=== PATIENT | female | born 1940 | race Caucasian/White ===

== ENCOUNTER 2023-11-08 18:27 | Emergency (ER) | payer MEDICARE, SELFPAY ==
[2023-11-08 18:32] VITALS: BP 102/76
[2023-11-08 18:34] VITALS: BP 102/76
[2023-11-08 18:41] VITALS: BMI 28.4
[2023-11-08 19:01] VITALS: BP 111/61
[2023-11-08 19:01] LABS: % Basophils 0.5 % (0-2); % Eosinophils 0.9 % (0-6); % Immature Granulocytes 0.4 % (0-0.5); % Lymphocytes 35.5 % (20.5-51.1); % Monocytes 8.3 % (1.7-9.3); % Neutrophils 54.4 % (42.2-75.2); Absolute Eosinophils 0.1 10^3/uL (0-0.7); Absolute Lymphocytes 2.7 10^3/uL (1.2-3.4); Absolute Monocytes 0.6 10^3/uL (0.1-0.6); Absolute Neutrophils 4.1 10^3/uL (1.4-6.5); Hematocrit 37.6 % (37.0-47.0); Hemoglobin 12.9 g/dL (12.0-16.0); Mean Corp Hgb Conc. 34.3 g/dL (33.0-37.0); Mean Corpuscular Hgb 31.2 pg (27.0-31.0); Mean Platelet Volume 10.6 fL (7.4-10.4); Nucleated Red Blood Cells % 0 %; Platelet Count 190 10^3/uL (130-400); Red Blood Cell Count 4.13 10^6/uL (4.20-5.40); Red Cell Dist. Width 12.7 % (11.5-14.5); White Blood Cell Count 7.6 10^3/uL (4.8-10.8)
[2023-11-08 19:34] LABS: ALT (SGPT) 17 U/L (0-35); AST (SGOT) 25 U/L (14-36); Albumin 3.8 g/dl (3.5-5.0); Alkaline Phosphatase 45 U/L (38-126); Blood Urea Nitrogen 21 mg/dl (7-17); Carbon Dioxide 21 mmol/L (22-30); Chloride 104 mmol/L (98-107); Estimated Creatinine Clearance 52 ml/min; Glucose 86 mg/dl (70-99); Sodium 136 mmol/L (135-145); Total Bilirubin 0.9 mg/dl (0.2-1.3); Total Protein 6.1 g/dl (6.3-8.2); eGFR > 60.00
--- NOTE | 2023-11-08 19:52 | ED.GENMED ---
History of Present Illness
General
Chief Complaint: Fall
Source: patient
Exam Limitations: none
Time Seen by Provider: 11/08/23 19:24
Nursing documentation reviewed up to this point in time: agreed with
Travel History
Have you had any contact with someone who has COVID-19?: No
Do you have any symptoms of coronavirus? Fever > 100 degrees, chills, cough, shortness of breath, sore throat, loss of taste or smell, muscle aches, or headache?: No
History of Present Illness
History of Present Illness:
83-year-old female presents to the ER from [facility]. Patient reports she was using her walker outside and got stuck and she fell landing on her right side. She does not believe she hit her head she hit her right side however
complains of right shoulder pain and right leg/hip soreness. She is on Eliquis for history A-fib. She denies any headache nausea vomiting neck pain.
Past History
Past History
ED Past Medical History: Arrthythmia (Atrial fib), Cancer (Breast CA with Left lumpectomy), CHF, HTN, Psychiatric (Anxiety Depression) and Other (L1 fracture; T12 compression fracture August 2022, minimal compression fracture of T11 February 2023,
left proximal humerus fracture February 2023)
ED Past Surgical History: Cholecystectomy, Orthopedic (right hip fracture, Partial replacement) and Other (colonoscopy)
Social History
Tobacco: Former smoker
Alcohol: Occasional
Drug: None
Personal:
Living: alone (Currently residing at [facility] for rehabilitation)
Employment: Retired
Family History
Family History: Other (Noncontributory)
Review of Systems
Review of Systems
Allergies reviewed?: Yes
All Other Systems: ROS reviewed and negative except as documented in HPI and ROS
Constitutional: Reports no symptoms
Cardiac: Reports no symptoms
ABD/GI: Reports no symptoms; Denies nausea or vomiting
Musculoskeletal: Reports other (right shoulder pain sore to right hip and right thigh )
Skin: Reports no symptoms
Neurological: Reports no symptoms
Hematologic/Lymphatic: Reports no symptoms
Psychiatric: Reports no symptoms
Phy Exam
General Physical Exam
General Presentation: no apparent distress
General age: appears stated age
General Skin: warm and dry
General Habitus: elderly
General Mental: alert
Neurological Exam
Neurological Exam: alert and oriented x3
Musculoskeletal Exam
Musculoskeletal Exam: other (No obvious head injury to person with spine tenderness normal inspection to her shoulder but tender throughout pain with lifting right leg off the stretcher mild soft tissue tenderness to thigh region no obvious bruising
or abrasions )
Skin Exam
Skin Exam: normal color and warm/dry
Psychiatric Exam
Psychiatric Exam: normal mood/affect
Course
Orders/Labs/Results
Orders:
Orders
11/08/23 18:39
EKG [Electrocardiogram (*1)] Urgent
Reason for Study: Syncope
11/08/23 18:40
EKG- Treatment ONCE
11/08/23 18:47
Complete Blood Count/With Diff Urgent
11/08/23 19:07
Comprehensive Metabolic Panel Urgent
11/08/23 19:53
CT Head W/o Iv Contrast Urgent
Comment:
Reason For Exam: trauma
11/08/23 19:56
Femur, Right 2 View [CR Femur - Right Min 2 Vw] Urgent
Comment:
Reason For Exam: cardiology
Hip, Right 2-3 Views [CR Hip - RT w/wo Pel 2-3 Vw*] Urgent
Comment:
Reason For Exam: trauma
Include a pelvis x-ray?: Yes
Shoulder, Right, Trauma [CR Shoulder, Trauma - Right] Urgent
Comment:
Reason For Exam: trauma
Abnormal Lab Results
11/08/23 11/08/23
18:47 19:07
RBC 4.13 L 10^6/uL
(4.20-5.40)
MCH 31.2 H pg
(27.0-31.0)
MPV 10.6 H fL
(7.4-10.4)
Carbon Dioxide 21 L mmol/L
(22-30)
BUN 21 H mg/dl
(7-17)
Total Protein 6.1 L g/dl
(6.3-8.2)
11/08/23 18:47
11/08/23 19:07
Vital Signs
Initial and Last Documented VS:
Initial Vital Signs
Temp Pulse BP Pulse Ox
98.1 F 84 102/76 94
11/08/23 18:32 11/08/23 18:32 11/08/23 18:32 11/08/23 18:32
Last Documented Vital Signs
Temp Pulse Resp BP Pulse Ox
98.1 F 82 21 111/93 91
11/08/23 18:32 11/08/23 21:30 11/08/23 21:30 11/08/23 21:00 11/08/23 21:30
MDM/Problems Addressed
Differential Diagnosis Includes:
Not limited to fracture extremity,possible head injury
MDM/Problems Addressed:
Patient is an 83-year-old female from [facility] independent living describes mechanical fall walker slipped on slide landing on her right side she is on Eliquis she did not believe she hit her head however with her being on Eliquis and landing on
her right side complaining of shoulder pain head CT was done and negative patient complained of soreness to the right shoulder and hip region. negative x-rays. she is in no acute distress here. labs were checked prior to my exam and unremarkable .
*Radiology
Radiology exam reviewed: radiology read reviewed
*Pulse Oximetry
Patient hypoxic: no
*Critical Care Note
Total Time (30-74mins, 75-104mins- exclusive of procedures): Not Applicable
ED Attending Note
-
Portions of this chart may have been created with voice recognition software.� Occasional wrong word or��sound alike� substitutions may have occurred due to the inherent limitations of voice recognition software.
Discharge Plan
Departure
Patient Disposition: Home (Routine Discharge)
Date of Disposition: 11/08/23
Time of Disposition: 23:08
Patient with high blood pressure during this ER visit?: No
Condition: Fair
Covid-19: Not Applicable
Discharge Problem:
Fall, Contusion
Instructions: Contusion (DC)
Prescriptions:
No Action
calcium carbonate 600 MG tablet
600 mg PO BIDWMEAL
potassium chloride [Klor-Con M20] 20 MEQ tablet,ER particles/crystals
20 meq PO DAILY
rosuvastatin 5 MG tablet
5 mg PO QPM Qty: 90 3RF
nitroglycerin 0.4 MG tablet, sublingual
0.4 mg sublingual [id number] PRN (Reason: chest pain) Qty: 25 2RF
fluoxetine 40 mg capsule
40 mg PO QPM
alendronate 70 mg tablet
70 mg PO WEEKLY
bupropion HCl 150 mg tablet extended release 24 hr
150 mg PO DAILY
furosemide 20 MG tablet
20 mg PO DAILY
Eliquis 5 MG tablet
5 mg PO BID
Hold Instructions: Resume on 03/01/23.
Rx Instructions:
OK to resume tonight 10/07 at usual time
lidocaine [Aspercreme (lidocaine)] 4 % Adhesive Patch,Medicated
1 patch topical DAILY@2000 Qty: 10 0RF
acetaminophen 325 mg Tablet
650 mg PO Q4HPRN PRN (Reason: mild pain/FOREMAN/temp> 100.4F) Qty: 30 0RF
propranolol 40 mg Tablet
40 mg PO BID
fluoxetine 20 mg Capsule
20 mg PO DAILY Qty: 30 0RF
oxycodone 10 mg tablet
15 mg PO Q6HPRN PRN (Reason: mod sev pain)
Rx Instructions:
use 5mg if moderate pain
tramadol 50 mg tablet
50 mg PO Q6H PRN (Reason: Pain) Qty: 30 0RF
cefuroxime axetil 250 mg tablet
250 mg PO BID Qty: 14 0RF
Referrals:
Nikko Kirk MD [Family Provider] -
Activity Restrictions/Additional Instructions:
You may take Tylenol as needed for discomfort. X-rays were negative for any fracture .CAT scan was negative. Follow-up with your family doctor the next 4 days return if any worsening of symptoms
Interventions
Interventions:
*Risk Screen - Suicide Last Done: 11/08/23 18:41
*General Assessment Last Done: 11/08/23 18:41
*Neglect/Abuse Screening Last Done: 11/08/23 18:41
ED- Fall Risk Assessment Last Done: 11/08/23 19:20
*ED COVID-19 Vaccine History Last Done: 11/08/23 18:41
ED-Musculoskeletal Assessment Last Done: 11/08/23 18:41
ED- Neurological Assessment Last Done: 11/08/23 18:41
ED-Skin Assessment Last Done: 11/08/23 18:41
Discharge Date and Time
Print Language: ALBANIAN
[2023-11-08 20:00] VITALS: BP 112/84
[2023-11-08 21:00] VITALS: BP 111/93
[2023-11-08 23:00] VITALS: BP 93/67
[2023-11-09] VITALS: BP 109/74
== END 2023-11-09 03:32 | disposition home or self-care (01) ==
LOC: EMR 18:27
PROVIDERS: Emergency Medicine; EMERGENCY PHYSICIAN Emergency Medicine; FAMILY PHYSICIAN Internal Medicine Geriatric Medicine
DX: S40.011A Contusion of right shoulder, initial encounter (principal); M79.652 Pain in left thigh; W19.XXXA Unspecified fall, initial encounter
CPT/HCPCS: 99284; 70450; 73030; 73502; 73552; 80053; 85025; 93005

== ENCOUNTER → 2023-12-06 10:24 | Outpatient (REF) | payer MEDICARE, SELFPAY ==
[2023-12-06 11:03] LABS: % Basophils 0.8 % (0-2); % Eosinophils 1.7 % (0-6); % Immature Granulocytes 0.3 % (0-0.5); % Lymphocytes 41.4 % (20.5-51.1); % Monocytes 9.6 % (1.7-9.3); % Neutrophils 46.2 % (42.2-75.2); Absolute Basophils 0.1 10^3/uL (0-0.2); Absolute Eosinophils 0.1 10^3/uL (0-0.7); Absolute Lymphocytes 3.1 10^3/uL (1.2-3.4); Absolute Monocytes 0.7 10^3/uL (0.1-0.6); Absolute Neutrophils 3.5 10^3/uL (1.4-6.5); Hematocrit 41.1 % (37.0-47.0); Hemoglobin 13.5 g/dL (12.0-16.0); Mean Corp Hgb Conc. 32.8 g/dL (33.0-37.0); Mean Corpuscular Hgb 30.5 pg (27.0-31.0); Mean Platelet Volume 10.5 fL (7.4-10.4); Nucleated Red Blood Cells % 0 %; Platelet Count 223 10^3/uL (130-400); Red Blood Cell Count 4.42 10^6/uL (4.20-5.40); White Blood Cell Count 7.5 10^3/uL (4.8-10.8)
[2023-12-06 11:17] LABS: Urine Albumin Trace (Neg - Trace); Urine Bilirubin 1+ (Negative); Urine Character Slightly Cloudy (Clear); Urine Color Yellow; Urine Glucose Negative (Negative); Urine Ketone Negative (Negative); Urine Leukocyte 2+ (Negative); Urine Nitrite Negative (Negative); Urine Occult Blood Negative (Negative); Urine Urobilinogen Negative (Neg - 1+)
[2023-12-06 11:50] LABS: Glycohemoglobin (HgbA1c) 5.8 % (4.0-5.6)
[2023-12-06 11:51] LABS: ALT (SGPT) 20 U/L (0-35); AST (SGOT) 24 U/L (14-36); Alkaline Phosphatase 61 U/L (38-126); Blood Urea Nitrogen 21 mg/dl (7-17); Carbon Dioxide 29 mmol/L (22-30); Chloride 104 mmol/L (98-107); Glucose 100 mg/dl (70-99); HDL Cholesterol 54 mg/dl; LDL Cholesterol, Calculated 51 mg/dl; Potassium 4.3 mmol/L (3.5-5.1); Sodium 142 mmol/L (135-145); Total Cholesterol 124 mg/dl (50-199); Total Protein 6.6 g/dl (6.3-8.2); Triglyceride 98 mg/dl (10-149); Very Low Density Lipoprotein 19 mg/dl (0-30); eGFR 56.25
[2023-12-06 12:06] LABS: Urine Amorphous Seen; Urine Mucus Few; Urine Squamous Cell 26-30 /LPF (Few)
[2023-12-06 12:07] LABS: Urine Red Blood Cell 0-2 /HPF (0-2)
[2023-12-06 12:08] LABS: Urine Bacteria Many (Negative); Urine White Cell 21-25 /HPF (0-5)
[2023-12-06 12:20] LABS: TSH Reflex To Free T4 0.55 uIU/ml (0.47-4.68)
== END ==
LOC: REG 10:24
PROVIDERS: ATTENDING PHYSICIAN Nurse Practitioner Family
DX: I48.21 Permanent atrial fibrillation (principal); I50.32 Chronic diastolic (congestive) heart failure; E78.2 Mixed hyperlipidemia; S42.292D Other displaced fracture of upper end of left humerus, subsequent encounter for fracture with routine healing; K21.9 Gastro-esophageal reflux disease without esophagitis; F33.1 Major depressive disorder, recurrent, moderate; R53.1 Weakness; R26.81 Unsteadiness on feet; Z13.89 Encounter for screening for other disorder; Z12.39 Encounter for other screening for malignant neoplasm of breast; I36.1 Nonrheumatic tricuspid (valve) insufficiency; I34.0 Nonrheumatic mitral (valve) insufficiency; G25.0 Essential tremor; R73.03 Prediabetes
CPT/HCPCS: 36415; 80053; 80061; 81003; 81015; 83036; 84443; 85025; 87077; 87086; 87186

== ENCOUNTER 2024-01-03 18:10 | Emergency (ER) | payer MEDICARE, SELFPAY ==
[2024-01-03] VITALS (11 sets, daily range): BP systolic 74–120; BP diastolic 38–81; BMI 29.7
[2024-01-03] MEDS: NSS 500 IV (18:22)
[2024-01-03 18:28] LABS: Hematocrit 29.3 % (37.0-47.0); Hemoglobin 10.2 g/dL (12.0-16.0); Mean Corp Hgb Conc. 34.8 g/dL (33.0-37.0); Mean Corpuscular Hgb 31.7 pg (27.0-31.0); Mean Platelet Volume 10.3 fL (7.4-10.4); Platelet Count 178 10^3/uL (130-400); Red Blood Cell Count 3.22 10^6/uL (4.20-5.40); White Blood Cell Count 7.7 10^3/uL (4.8-10.8)
[2024-01-03 18:42] LABS: ALT (SGPT) 12 U/L (0-35); AST (SGOT) 18 U/L (14-36); Albumin 3.4 g/dl (3.5-5.0); Alkaline Phosphatase 50 U/L (38-126); Blood Urea Nitrogen 18 mg/dl (7-17); Calcium 8.7 mg/dl (8.4-10.2); Carbon Dioxide 24 mmol/L (22-30); Chloride 106 mmol/L (98-107); Estimated Creatinine Clearance 45 ml/min; Glucose 90 mg/dl (70-99); Magnesium 1.7 mg/dl (1.6-2.3); Potassium 3.7 mmol/L (3.5-5.1); Sodium 138 mmol/L (135-145); Total Bilirubin 0.7 mg/dl (0.2-1.3); Total Protein 5.4 g/dl (6.3-8.2); eGFR > 60.00
[2024-01-03 18:52] LABS: Troponin I < 0.012 ng/ml
--- NOTE | 2024-01-03 18:57 | ED.GENMED ---
History of Present Illness
General
Chief Complaint: Fall
Source: patient
Exam Limitations: none
Time Seen by Provider: 01/03/24 18:20
Nursing documentation reviewed up to this point in time: agreed with
History of Present Illness
History of Present Illness:
Patient presents to ED for evaluation after witnessed fall at [facility], shortly prior to arrival. Patient who utilizes walker at baseline, who unfortunate has had multiple falls recently, states that she lost balance and fell backwards, hitting
the back of her head on the floor. Denies loss of consciousness. Denies neck pain. Denies dizziness. Denies nausea. Denies loss of sensation or weakness. Denies blurred vision. Per paramedics, however, when initially evaluated at scene,
patient was found to be hypotensive with initial blood pressure in 70s. Patient was started on IV fluids in route to the hospital.
Past History
Past History
ED Past Medical History: Arrthythmia (Atrial fib), Cancer (Breast CA with Left lumpectomy), CHF, HTN, Psychiatric (Anxiety Depression) and Other (L1 fracture; T12 compression fracture August 2022, minimal compression fracture of T11 February 2023,
left proximal humerus fracture February 2023)
ED Past Surgical History: Cholecystectomy, Orthopedic (right hip fracture, Partial replacement) and Other (colonoscopy)
Social History
Tobacco: Former smoker
Alcohol: Occasional
Drug: None
Personal:
Living: alone (Currently residing at [facility] for rehabilitation)
Employment: Retired
Family History
Family History: Other (Noncontributory)
Review of Systems
Review of Systems
Allergies reviewed?: Yes
All Other Systems: ROS reviewed and negative except as documented in HPI and ROS
Constitutional: Reports no symptoms
EENT: Reports no symptoms
Respiratory: Reports no symptoms
Cardiac: Reports no symptoms
ABD/GI: Reports no symptoms
Musculoskeletal: Reports no symptoms
Skin: Reports other (thigh bruise)
Neurological: Reports no symptoms
Phy Exam
Physical Exam
Physical Exam:
Physical Exam
General: no apparent distress, not acutely ill. afebrile
Head: nc/at. eomi
Neck: supple. no meningeal signs.
Heart: irregularly irregular, no murmur. equal radial pulses.
Lungs: no acute respiratory distress. clear bilaterally
Abdomen: normal bowel sounds. not tender.
Neuro: alert and oriented. no focal neurological deficits
Skin: ecchymosis noted over right anterior thigh.
Psychiatric: well kept. interactive and cooperative
Extremities: no edema. no calf tenderness.
Course
Orders/Labs/Results
Orders:
Orders
01/03/24 18:11
CT Head W/o Iv Contrast Urgent
Comment:
Reason For Exam: FALL ON THINNERS
01/03/24 18:19
CT Cervical Spine W/o Iv Contr Urgent
Comment:
Reason For Exam: FALL
01/03/24 18:20
Electrocardiogram (*1) Urgent
Reason for Study: Other
Other Reason for Exam: hypotension
EKG- Treatment ONCE
01/03/24 18:21
0.9% Sodium Chloride 500 ml [Nss] 500 ml IV BOLUS
01/03/24 18:23
Complete Blood Count/No Diff Urgent
Comprehensive Metabolic Panel Urgent
Magnesium Urgent
TSH Urgent
Troponin I Urgent
Abnormal Lab Results
01/03/24
18:23
RBC 3.22 L 10^6/uL
(4.20-5.40)
Hgb 10.2 L g/dL
(12.0-16.0)
Hct 29.3 L %
(37.0-47.0)
MCH 31.7 H pg
(27.0-31.0)
BUN 18 H mg/dl
(7-17)
Total Protein 5.4 L g/dl
(6.3-8.2)
Albumin 3.4 L g/dl
(3.5-5.0)
01/03/24 18:23
01/03/24 18:23
Vital Signs
Initial and Last Documented VS:
Initial Vital Signs
Temp Pulse Resp BP Pulse Ox
98.3 F 69 14 81/38 95
01/03/24 18:12 01/03/24 18:12 01/03/24 18:12 01/03/24 18:12 01/03/24 18:12
Last Documented Vital Signs
Temp Pulse Resp BP Pulse Ox
98.0 F 76 20 113/70 98
01/03/24 20:39 01/03/24 20:39 01/03/24 20:39 01/03/24 20:39 01/03/24 21:33
MDM/Problems Addressed
MDM/Problems Addressed:
CT head/C-spine : no acute findings. Pt remains afebrile, neurologically intact, without any complaints during observation.
BP improved with IVF.
Pt will be transferred back to [place] for continual evaluation and treatment.
*EKG
Interpreted by ED Provider?: Yes
EKG Intrepretation Date: 01/03/24
Heart Rate: 80
Rate: normal
Rhythm: a-fib
[place]: normal axis
Ischemia: non-specific ST changes
*Critical Care Note
Total Time (30-74mins, 75-104mins- exclusive of procedures): Not Applicable
ED Attending Note
-
Portions of this chart may have been created with voice recognition software.� Occasional wrong word or��sound alike� substitutions may have occurred due to the inherent limitations of voice recognition software.
Discharge Plan
Departure
Patient Disposition: Detention/SNF
Date of Disposition: 01/03/24
Time of Disposition: 19:59
Discharge Problem:
Head injury, Contusion of leg, right, Hypotension
Instructions: Head Injury in Adults (DC), Contusion (DC)
Prescriptions:
No Action
calcium carbonate 600 MG tablet
600 mg PO BIDWMEAL
potassium chloride [Klor-Con M20] 20 MEQ tablet,ER particles/crystals
20 meq PO DAILY
rosuvastatin 5 MG tablet
5 mg PO QPM Qty: 90 3RF
nitroglycerin 0.4 MG tablet, sublingual
0.4 mg sublingual [id number] PRN (Reason: chest pain) Qty: 25 2RF
fluoxetine 40 mg capsule
40 mg PO QPM
alendronate 70 mg tablet
70 mg PO WEEKLY
bupropion HCl 150 mg tablet extended release 24 hr
150 mg PO DAILY
furosemide 20 MG tablet
20 mg PO DAILY
Eliquis 5 MG tablet
5 mg PO BID
Hold Instructions: Resume on 03/01/23.
Rx Instructions:
OK to resume tonight / at usual time
lidocaine [Aspercreme (lidocaine)] 4 % Adhesive Patch,Medicated
1 patch topical DAILY@2000 Qty: 10 0RF
acetaminophen 325 mg Tablet
650 mg PO Q4HPRN PRN (Reason: mild pain/FOREMAN/temp> 100.4F) Qty: 30 0RF
propranolol 40 mg Tablet
40 mg PO BID
fluoxetine 20 mg Capsule
20 mg PO DAILY Qty: 30 0RF
oxycodone 10 mg tablet
15 mg PO Q6HPRN PRN (Reason: mod sev pain)
Rx Instructions:
use 5mg if moderate pain
tramadol 50 mg tablet
50 mg PO Q6H PRN (Reason: Pain) Qty: 30 0RF
cefuroxime axetil 250 mg tablet
250 mg PO BID Qty: 14 0RF
Referrals:
UNKNOWN - PT DOES,NOT KNOW [Family Provider] -
Activity Restrictions/Additional Instructions:
As discussed, you are being transferred back to [facility] for continual evaluation and treatment. In ED, CT scan did not reveal any acute abnormalities.
Interventions
Interventions:
*Risk Screen - Suicide Last Done: 01/03/24 18:13
*General Assessment Last Done: 01/03/24 18:13
*Neglect/Abuse Screening Last Done: 01/03/24 18:13
ED- Fall Risk Assessment Last Done: 01/03/24 19:00
*ED COVID-19 Vaccine History Last Done: 01/03/24 18:13
*Nursing Disposition Last Done: 01/03/24 21:33
ED-Musculoskeletal Assessment Last Done: 01/03/24 19:00
ED- Neurological Assessment Last Done: 01/03/24 19:00
ED-Skin Assessment Last Done: 01/03/24 19:00
Discharge Date and Time
Discharge Date/Time: 01/03/24 21:20
Print Language: MICRONESIAN
[2024-01-03 19:11] LABS: TSH 0.58 uIU/ml (0.47-4.68)
== END 2024-01-03 21:20 ==
LOC: EMR 18:10
PROVIDERS: EMERGENCY PHYSICIAN Emergency Medicine
DX: S09.90XA Unspecified injury of head, initial encounter (principal); S80.11XA Contusion of right lower leg, initial encounter; I95.9 Hypotension, unspecified; W19.XXXA Unspecified fall, initial encounter; I48.91 Unspecified atrial fibrillation; I11.0 Hypertensive heart disease with heart failure; I50.9 Heart failure, unspecified; F41.8 Other specified anxiety disorders; Z87.891 Personal history of nicotine dependence
CPT/HCPCS: 99284; 96360; 70450; 72125; 80053; 83735; 84443; 84484; 85027; 93005

== ENCOUNTER 2024-07-04 21:00 | Inpatient (IN) | payer MEDICARE, SELFPAY ==
[2024-07-04] VITALS (11 sets, daily range): BP systolic 120–170; BP diastolic 78–111; PULSE 113; BMI 30.3
[2024-07-04] MEDS: TYLENOL 650 MG PO ×3 (08:38→21:03)
--- NOTE | 2024-07-04 10:51 | ED.MUSCINJ ---
HPI-Injury
General
Chief Complaint: Fall
Source: patient
Exam Limitations: none
Time Seen by Provider: 07/04/24 10:40
History of Present Illness-Injury
Initial Injury comments:
84-year-old female on [place] presents after a fall she sustained today. She went to the bathroom but was feeling weak and fell backwards. She landed on her buttock but complains of lower back pain. She does not think she hit her head. She has
been nauseous and heaving all morning. She threw up coming back into the room. She denies abdominal pain or chest pain. She is companied by her daughter who is currently visiting her. She typically lives at home otherwise by herself and uses a
walker for ambulation
Past History
Past History
ED Past Medical History: Arrthythmia (Atrial fib), Cancer (Breast CA with Left lumpectomy), CHF, HTN, Psychiatric (Anxiety Depression) and Other (L1 fracture; T12 compression fracture August 2022, minimal compression fracture of T11 February 2023,
left proximal humerus fracture February 2023)
ED Past Surgical History: Cholecystectomy, Orthopedic (right hip fracture, Partial replacement) and Other (colonoscopy)
Social History
Tobacco: Former smoker
Alcohol: Occasional
Drug: None
Personal:
Living: alone (Currently residing at [facility] for rehabilitation)
Employment: Retired
Family History
Family History: Other (Noncontributory)
Phy Exam
Physical Exam
Physical Exam:
General: Well-appearing female no acute respiratory distress
HEENT: Normocephalic atraumatic no obvious scalp abrasion or hematoma
Heart: Regular rate and rhythm
Lungs: Clear no wheeze
Abdomen is soft nontender nondistended
Extremities: No cyanosis or edema
Musculoskeletal exam: There is tenderness over the lumbar spine bilateral lower extremities with good range of motion
Neurologic: Alert and oriented no facial asymmetry
Injury Course
Orders/Labs/Results
Orders:
Orders
07/04/24 08:37
Acetaminophen [Tylenol] 650 mg .ROUTE .STK-MED ONE
Acetaminophen [Tylenol] 650 mg PO NOW STA
07/04/24 10:50
Electrocardiogram (*1) Urgent
Reason for Study: Fatigue / Weakness
CT Head W/o Iv Contrast Urgent
Comment:
Reason For Exam: fall
EKG- Treatment ONCE
CR Lumbar Spine 2 Or 3 Views Urgent
Comment:
Reason For Exam: fall, back pain
07/04/24 10:57
Complete Blood Count/With Diff Urgent
Comprehensive Metabolic Panel Urgent
07/04/24 12:49
Acetaminophen [Tylenol] 650 mg PO NOW STA
PT Consult [Pt Eval And Treat] Urgent
Activity Level: Ambulate
07/04/24 12:50
Lidocaine [Lidocaine 4% Patch] 1 patch TOPICAL NOW STA
Apply Lidocaine patch(s) to:: Lower back
07/04/24 13:31
Case Management Consult ONCE
Case Management Consult: Discharge Planning
Abnormal Lab Results
07/04/24
10:57
WBC 19.6 H 10^3/uL
(4.8-10.8)
Abs Immat Gran (auto) 0.2 H 10^3/uL
(0-0.05)
Absolute Neuts (auto) 16.4 H 10^3/uL
(1.4-6.5)
Absolute Monos (auto) 0.9 H 10^3/uL
(0.1-0.6)
Immature Gran % 0.8 H %
(0-0.5)
Neutrophils % 84.1 H %
(42.2-75.2)
Lymphocytes % 10.2 L %
(20.5-51.1)
BUN 20 H mg/dl
(7-17)
Glucose 204 H mg/dl
(70-99)
07/04/24 10:57
07/04/24 10:57
MDM/Problems Addressed
Differential Diagnosis Includes:
Patient with fall may be secondary to weakness. It seems the patient has been feeling ill throughout the morning and has been vomiting. Will check labs. CT head pending secondary to fall on a thinner. X-ray lumbar spine pending.
*Critical Care Note
Total Time (30-74mins, 75-104mins- exclusive of procedures): Not Applicable
Update Note
Update Note:
CT head negative. X-ray lumbar spine shows no acute fracture. Labs reviewed. Patient does have leukocytosis at white count of 19.6 but she did vomit once. She has not been vomiting since then. She is tolerating oral fluids. Upon further
questioning, the patient daughter states he has fallen 3 times in the past month. She is living independently at the . Will come physical therapy. Will order Tylenol and Lidoderm patch
Patient failed physical therapy evaluation unable to even safely get out of bed. Case management involved. Unable to be placed today. Unsafe for discharge. Will keep in hospital for further work with physical therapy and case management for
potential placement
ED Attending Note
-
Portions of this chart may have been created with voice recognition software.� Occasional wrong word or��sound alike� substitutions may have occurred due to the inherent limitations of voice recognition software.
Discharge Plan
Departure
Patient Disposition: Admit
Date of Disposition: 07/04/24
Time of Disposition: 15:01
Presentation/result/management discussed w/ accepting MD/DO: Hospitalist
Discharge Problem:
Weakness
Prescriptions:
No Action
calcium carbonate 600 MG tablet
600 mg PO BIDWMEAL
potassium chloride [Klor-Con M20] 20 MEQ tablet,ER particles/crystals
20 meq PO DAILY
rosuvastatin 5 MG tablet
5 mg PO QPM Qty: 90 3RF
nitroglycerin 0.4 MG tablet, sublingual
0.4 mg sublingual [id number] PRN (Reason: chest pain) Qty: 25 2RF
fluoxetine 40 mg capsule
40 mg PO QPM
alendronate 70 mg tablet
70 mg PO WEEKLY
bupropion HCl 150 mg tablet extended release 24 hr
150 mg PO DAILY
furosemide 20 MG tablet
20 mg PO DAILY
Eliquis 5 MG tablet
5 mg PO BID
Rx Instructions:
OK to resume tonight 10/07 at usual time
lidocaine [Aspercreme (lidocaine)] 4 % Adhesive Patch,Medicated
1 patch topical DAILY@1999 Qty: 10 0RF
acetaminophen 325 mg Tablet
650 mg PO Q4HPRN PRN (Reason: mild pain/FOREMAN/temp> 100.4F) Qty: 30 0RF
propranolol 40 mg Tablet
40 mg PO BID
fluoxetine 20 mg Capsule
20 mg PO DAILY Qty: 30 0RF
oxycodone 10 mg tablet
15 mg PO Q6HPRN PRN (Reason: mod sev pain)
Rx Instructions:
use 5mg if moderate pain
tramadol 50 mg tablet
50 mg PO Q6H PRN (Reason: Pain) Qty: 30 0RF
cefuroxime axetil 250 mg tablet
250 mg PO BID Qty: 14 0RF
Referrals:
Nikko Kirk MD [Family Provider] -
Interventions
Interventions:
*Risk Screen - Suicide Last Done: 07/04/24 08:31
*General Assessment Last Done: 07/04/24 08:31
*Neglect/Abuse Screening Last Done: 07/04/24 08:31
*ED COVID-19 Vaccine History Last Done: 07/04/24 08:31
ED-Musculoskeletal Assessment Last Done: 07/04/24 10:53
ED- Neurological Assessment Last Done: 07/04/24 10:53
ED-Skin Assessment Last Done: 07/04/24 10:53
Discharge Date and Time
Print Language: [place]OOK ISLAND[place]
[2024-07-04 11:14] LABS: % Basophils 0.3 % (0-2); % Eosinophils 0.3 % (0-6); % Immature Granulocytes 0.8 % (0-0.5); % Lymphocytes 10.2 % (20.5-51.1); % Monocytes 4.3 % (1.7-9.3); % Neutrophils 84.1 % (42.2-75.2); Absolute Basophils 0.1 10^3/uL (0-0.2); Absolute Eosinophils 0.1 10^3/uL (0-0.7); Absolute Immature Granulocytes 0.2 10^3/uL (0-0.05); Absolute Monocytes 0.9 10^3/uL (0.1-0.6); Absolute Neutrophils 16.4 10^3/uL (1.4-6.5); Hematocrit 41.4 % (37.0-47.0); Hemoglobin 13.8 g/dL (12.0-16.0); Mean Corp Hgb Conc. 33.3 g/dL (33.0-37.0); Mean Corpuscular Hgb 30.5 pg (27.0-31.0); Mean Corpuscular Volume 91.4 fL (81.0-99.0); Nucleated Red Blood Cells % 0 %; Platelet Count 259 10^3/uL (130-400); Red Blood Cell Count 4.53 10^6/uL (4.20-5.40); Red Cell Dist. Width 13.2 % (11.5-14.5); White Blood Cell Count 19.6 10^3/uL (4.8-10.8)
[2024-07-04 11:39] LABS: ALT (SGPT) 27 U/L (0-35); AST (SGOT) 33 U/L (14-36); Albumin 4.3 g/dl (3.5-5.0); Alkaline Phosphatase 79 U/L (38-126); Blood Urea Nitrogen 20 mg/dl (7-17); Calcium 9.5 mg/dl (8.4-10.2); Carbon Dioxide 26 mmol/L (22-30); Chloride 101 mmol/L (98-107); Glucose 204 mg/dl (70-99); Potassium 5.1 mmol/L (3.5-5.1); Sodium 136 mmol/L (135-145); Total Bilirubin 0.8 mg/dl (0.2-1.3); Total Protein 6.9 g/dl (6.3-8.2)
[2024-07-04] MEDS: LIDOCAINE 4% PATCH 1 PATCH TOPICAL (12:54)
--- NOTE | 2024-07-04 13:43 | CM ---
CM reviewed medical records. Patients lives in [place] at [facility]. CM is pending PT evaluation.
--- NOTE | 2024-07-04 14:02 | CM ---
CM met with patient and daughter in room. Patient lives in [place] at the [facility]. Patient understands that PT has recommended SNF. CM confirmed that patient is Medicare FFS and does not have a qualifying three midnight stay.
CM inquired if patient was eligible for MSSP program. CM is awaiting return call.
--- NOTE | 2024-07-04 14:57 | CM ---
Addendum entered by Megan Cortes RN 07/04/24 17:26:
CM sent referral via [facility] to the following SNF's: Pending acceptance.
[facility]
Original Note:
CM confirmed that patient is eligible for MSSP program. Patient and daughter provided with SNF options. CM updated PA
--- NOTE | 2024-07-04 15:52 | HPS.HSE ---
Family Physician
-
Family Physician: Nikko Kirk
Chief Complaint
-
fall
History of Present Illness
84yo F with PMHX of Afib on Eliquis, HTN, HLD, anxiety, HFpEF, pulmonary HTN, frequent falls with vertebral compression Fx came after the fall from home, described like she tangled in her legs, no LOC reported. Similarly - no LOC on previous falls
earlier this month. Patient lives alone in independent living and concern that she might need higher level of care. She c/o point tenderness to lumbosacral area. No other numbness or weakness in upper or lower extremities
Medical History
Past Medical History
Past Medical History: Reports Other
Additional Past Medical History:
see HPI
Past Surgical History: Reports Other
Additional Past Surgical History:
See HPI
Social History
Tobacco: Former Smoker
Alcohol: None
Drug: None
Family History
Family History: Not pertinent
Allergies / Home Medications
Allergies reflects when Allergies were last updated in [facility].
Home Medications with original date entered in [facility]
Allergy/Medication List:
Allergies
Allergy/AdvReac Type Severity Reaction Status Date / Time
atorvastatin Allergy Shortness Verified 08/13/22 15:16
of Breath
Home Medications
potassium chloride 20 mEq tablet,extended release(part/cryst) (Klor-Con M) 20 meq PO DAILY Electrolyte Repletion 07/20/21
rosuvastatin 5 mg tablet 5 mg PO QPM #90 tabs 10/07/21
bupropion HCl 150 mg 24 hr tablet, extended release 150 mg PO DAILY Mental Health/Anxiety 05/25/22
fluoxetine 40 mg capsule 40 mg PO QPM Mental Health/Anxiety 05/25/22
furosemide 20 mg tablet 20 mg PO DAILY Fluid retention/Swelling 05/26/22
propranolol 40 mg tablet 60 mg PO BID Heart Disease/Condition 02/21/23
fluoxetine 20 mg capsule 20 mg PO DAILY depression #30 caps 02/26/23
apixaban 5 mg tablet (Eliquis) 5 mg PO BID 07/04/24
calcium carbonate 1,500 mg PO DAILY 07/04/24
tamsulosin 0.4 mg capsule (Flomax) 0.4 mg PO DAILY 07/04/24
Review of Systems
-
History Source: Patient
A 12 point ROS was completed and negative except as noted: Yes
Musculoskeletal: Reports See HPI
Physical Exam
Vital Signs
Vital Signs
Temp Pulse Resp BP Pulse Ox
97.9 F 93 20 141/97 95
07/04/24 15:49 07/04/24 15:49 07/04/24 15:49 07/04/24 12:58 07/04/24 15:49
Physical Exam
General: Well Developed, Well Nourished and No Apparent Distress
HEENT: NormoCephalic, Anicteric, Moist mucous membranes and Hearing Impaired
Respiratory: Clear; No Wheezes, Rales or Rhonchi
Cardiac: S1/S2 and Irregular Rhythm; No Tachycardia
GI: Soft, Non Tender and Non Distended
Genito-urinary: No costovertebral tender
Musculoskeletal: No Clubbing, No Cyanosis and No Edema
Skin: Warm; No Dry, Rash or Jaundice
Neuro: Awake, Alert, Oriented and AO x 3
Psych: Calm
Laboratory Results
-
07/04/24 10:57
07/04/24 10:57
Laboratory Results
Total Bilirubin 0.8 mg/dl (0.2-1.3) 07/04/24 10:57
AST 33 U/L (14-36) 07/04/24 10:57
ALT 27 U/L (0-35) 07/04/24 10:57
Alkaline Phosphatase 79 U/L (38-126) 07/04/24 10:57
Data Reviewed
-
Diagnostic Radiology: Report Reviewed by me
Lab Data: Labs Reviewed by me
Impression/Plan
-
A/P:
#Fall w/o LOC 2/2 chronic ambulatory deficiency
check TSH
PT/OT
CM for placement
Head CT unremarkable
Lumbar spine XR with old vertebral Fx
CT lumbar spine is reasonable
#Leukocytosis
No dysuria, no cough, no respiratory symptoms or fever reported
Check UA, chest XR, COVID-19 and influenza PCR
#hyperglycemia
check HgbA1c - not previously DM
#Afib, permanent
#Essential HTN
#Chronic HFpEF
#HLD
#Urinary retention
#Anxiety d/o
cont home meds
Watch for retention
DVT ppx Eliquis
DNR/DNI as agreed with patient and family
I have spent at least 59min reviewing chart, test results, communication with consultants and direct patient care
[2024-07-04 16:11] LABS: INR 1.11; PT 14.8 Sec (11.4-14.6)
[2024-07-04 16:26] LABS: COVID-19 Antigen Negative (Negative)
[2024-07-04 16:47] LABS: TSH Reflex To Free T4 1.66 uIU/ml (0.47-4.68)
[2024-07-04] MEDS: INDERAL 60 MG PO (19:44)
[2024-07-04] MEDS: CRESTOR 5 MG PO (19:44)
[2024-07-04] MEDS: ELIQUIS 5 MG PO (19:46)
[2024-07-04] MEDS: PROZAC 40 MG PO (19:46)
[2024-07-04 20:44] LABS: Urine Albumin Trace (Neg - Trace); Urine Bilirubin Negative (Negative); Urine Character Slightly Cloudy (Clear); Urine Color Yellow; Urine Glucose Negative (Negative); Urine Ketone Negative (Negative); Urine Leukocyte 1+ (Negative); Urine Nitrite Negative (Negative); Urine Occult Blood 1+ (Negative); Urine Urobilinogen Negative (Neg - 1+)
[2024-07-04 20:53] LABS: Urine Squamous Cell 26-30 /LPF (Few)
[2024-07-04 20:54] LABS: Urine Bacteria Many (Negative); Urine White Cell 26-30 /HPF (0-5)
--- NOTE | 2024-07-04 21:52 | PTCARENOTE ---
Pt arrived to room 337-2 safely with staff assistance. Pt oriented to room, call newman within reach, able to make needs known.
[2024-07-05] MEDS: TYLENOL 650 MG PO ×4 (03:23→23:52)
[2024-07-05 05:41] LABS: Hematocrit 38.1 % (37.0-47.0); Hemoglobin 12.6 g/dL (12.0-16.0); Mean Corp Hgb Conc. 33.1 g/dL (33.0-37.0); Mean Corpuscular Hgb 29.5 pg (27.0-31.0); Mean Corpuscular Volume 89.2 fL (81.0-99.0); Mean Platelet Volume 9.6 fL (7.4-10.4); Platelet Count 212 10^3/uL (130-400); Red Blood Cell Count 4.27 10^6/uL (4.20-5.40); Red Cell Dist. Width 13.3 % (11.5-14.5); White Blood Cell Count 13.4 10^3/uL (4.8-10.8)
[2024-07-05 06:07] LABS: Blood Urea Nitrogen 17 mg/dl (7-17); Calcium 9.2 mg/dl (8.4-10.2); Carbon Dioxide 30 mmol/L (22-30); Chloride 100 mmol/L (98-107); Estimated Creatinine Clearance 47 ml/min; Glucose 110 mg/dl (70-99); Sodium 136 mmol/L (135-145); eGFR > 60.00
[2024-07-05 06:54] VITALS: BMI 30.3
[2024-07-05 07:20] VITALS: BP 116/78
[2024-07-05] MEDS: PROZAC 20 MG PO (08:33)
[2024-07-05] MEDS: INDERAL 60 MG PO (08:33)
[2024-07-05] MEDS: WELLBUTRIN XL (24 hour extended release) 150 MG PO (08:33)
[2024-07-05] MEDS: FLOMAX 0.4 MG PO (08:34)
[2024-07-05] MEDS: ELIQUIS 5 MG PO ×2 (08:34→20:30)
[2024-07-05] MEDS: LASIX 20 MG PO (08:35)
[2024-07-05] MEDS: OSCAL CAL 500 1500 MG PO (08:35)
[2024-07-05] MEDS: STERILE WATER FOR INJECTION 10 ML IV (08:35)
[2024-07-05] MEDS: ROCEPHIN 1000 MG IV (08:35)
[2024-07-05] MEDS: KCL 20 MEQ PO (08:35)
[2024-07-05 09:06] LABS: Glycohemoglobin (HgbA1c) 5.4 % (4.0-5.6)
--- NOTE | 2024-07-05 10:01 | W.PN.HOSP.TC ---
Today's Communication/Plan
-
PT/OT
d/c after Ucx result to rehab - CM consult placed
Assessment / Plan
Assessment / Plan
84yo F with PMHX of Afib on Eliquis, HTN, HLD, anxiety, HFpEF, pulmonary HTN, frequent falls with vertebral compression Fx came after the fall from home, described like she tangled in her legs, no LOC reported. Similarly - no LOC on previous falls
earlier this month. Patient lives alone in independent living and concern that she might need higher level of care. Found UTI
A/P:
#Fall w/o LOC 2/2 chronic ambulatory deficiency
TSH WNL
PT/OT
CM for placement
Head CT unremarkable
Lumbar spine XR with old vertebral Fx
CT: Diffuse osteopenia with a fracture through the L2 vertebral body with minimal loss of height, Multilevel degenerative changes of the lumbar spine most pronounced at L3-L4 with resultant mild canal stenosis, mild/moderate right-sided
neuroforaminal narrowing and mild left-sided neuroforaminal narrowing
#UTI
pending Ucx - cont Rocephin
#AAA
4.0x4.6cm
outpatient VascSx for monitoring
#hyperglycemia with PMHx of preDM
HgbA1c 5.4%
#Afib, permanent
#Essential HTN
#Chronic HFpEF
#HLD
#Urinary retention
#Anxiety d/o
cont home meds
Watch for retention
DVT ppx Eliquis
DNR/DNI as agreed with patient and family
I have spent at least 59min reviewing chart, test results, communication with consultants and direct patient care
Anticipated Discharge: 24 - 48 hours
Subjective/Interval History
-
Date of Service: July 05, 2024
Objective Data
-
Labs:
Laboratory Results
07/05/24
05:30
WBC 13.4 H
Hgb 12.6
Hct 38.1
Plt Count 212
Sodium 136
Potassium 4.0
Chloride 100
Carbon Dioxide 30
BUN 17
Creatinine 0.8
Glucose 110 H
Calcium 9.2
Vital Signs:
Vital Signs
Temp Pulse Resp BP Pulse Ox
97.7 F 102 17 116/78 94
07/05/24 07:20 07/05/24 07:20 07/05/24 07:20 07/05/24 07:20 07/05/24 07:20
Review of Systems
-
History Source: Patient
All other systems: Reviewed and negative
Musculoskeletal: Reports Other (back pain)
Physical Exam
-
General: No Apparent Distress
HEENT: Normocephalic
Respiratory: Clear to Auscultation
Cardiac: Regular Rhythm
GI: Soft, Nontender and Nondistended
Musculoskeletal: No Clubbing, No Cyanosis and No Edema
Skin: Warm
Neuro: Awake, Alert, Oriented and AO x 3
Psych: Calm
[2024-07-05 14:56] VITALS: BP 92/66; PULSE 91; O2SAT 93
[2024-07-05 15:25] VITALS: BP 92/66
[2024-07-05] MEDS: PROZAC 40 MG PO (17:25)
[2024-07-05] MEDS: CRESTOR 5 MG PO (17:25)
[2024-07-05] MEDS: INDERAL PO (20:28)
[2024-07-05 23:40] VITALS: BP 150/90
[2024-07-06 05:33] LABS: % Basophils 0.5 % (0-2); % Eosinophils 2.4 % (0-6); % Immature Granulocytes 0.5 % (0-0.5); % Lymphocytes 22.4 % (20.5-51.1); % Monocytes 7.3 % (1.7-9.3); % Neutrophils 66.9 % (42.2-75.2); Absolute Basophils 0.1 10^3/uL (0-0.2); Absolute Eosinophils 0.3 10^3/uL (0-0.7); Absolute Immature Granulocytes 0.1 10^3/uL (0-0.05); Absolute Neutrophils 8.9 10^3/uL (1.4-6.5); Hematocrit 37.2 % (37.0-47.0); Hemoglobin 12.5 g/dL (12.0-16.0); Mean Corp Hgb Conc. 33.6 g/dL (33.0-37.0); Mean Corpuscular Hgb 30.3 pg (27.0-31.0); Mean Corpuscular Volume 90.3 fL (81.0-99.0); Nucleated Red Blood Cells % 0 %; Platelet Count 201 10^3/uL (130-400); Red Blood Cell Count 4.12 10^6/uL (4.20-5.40); Red Cell Dist. Width 13.5 % (11.5-14.5); White Blood Cell Count 13.2 10^3/uL (4.8-10.8)
[2024-07-06 06:00] VITALS: BMI 30.3
[2024-07-06 07:30] VITALS: BP 131/98
[2024-07-06] MEDS: KCL 20 MEQ PO (08:47)
[2024-07-06] MEDS: OSCAL CAL 500 1500 MG PO (08:48)
[2024-07-06] MEDS: LASIX 20 MG PO (08:48)
[2024-07-06] MEDS: INDERAL 60 MG PO ×2 (08:48→20:01)
[2024-07-06] MEDS: TYLENOL 650 MG PO ×2 (08:48→13:48)
[2024-07-06] MEDS: ELIQUIS 5 MG PO ×2 (08:48→20:01)
[2024-07-06] MEDS: PROZAC 20 MG PO (08:49)
[2024-07-06] MEDS: FLOMAX 0.4 MG PO (08:51)
[2024-07-06] MEDS: WELLBUTRIN XL (24 hour extended release) 150 MG PO (08:51)
[2024-07-06] MEDS: STERILE WATER FOR INJECTION 10 ML IV (08:51)
[2024-07-06] MEDS: ROCEPHIN 1000 MG IV (08:51)
[2024-07-06] MEDS: LIDOCAINE 4% PATCH 1 PATCH TOPICAL (09:50)
--- NOTE | 2024-07-06 10:04 | PTCARENOTE ---
Pt c/o 02/15 lower back pain, made aware, new order provided, see LISA.
--- NOTE | 2024-07-06 12:06 | W.PN.HOSP.TC ---
Today's Communication/Plan
-
awaiting for final Ucx then d/c to rehab
Assessment / Plan
Assessment / Plan
84yo F with PMHX of Afib on Eliquis, HTN, HLD, anxiety, HFpEF, pulmonary HTN, frequent falls with vertebral compression Fx came after the fall from home, described like she tangled in her legs, no LOC reported. Similarly - no LOC on previous falls
earlier this month. Patient lives alone in independent living and concern that she might need higher level of care. Found UTI
A/P:
#Fall w/o LOC 2/2 chronic ambulatory deficiency
TSH WNL
PT/OT
CM for placement
Head CT unremarkable
Lumbar spine XR with old vertebral Fx
CT: Diffuse osteopenia with a fracture through the L2 vertebral body with minimal loss of height, Multilevel degenerative changes of the lumbar spine most pronounced at L3-L4 with resultant mild canal stenosis, mild/moderate right-sided
neuroforaminal narrowing and mild left-sided neuroforaminal narrowing
Tylenol/Lidocaine patch
#UTI
Ucx GNB
cont Rocephin
#AAA
4.0x4.6cm
outpatient VascSx for monitoring
#hyperglycemia with PMHx of preDM
HgbA1c 5.4%
#Afib, permanent
#Essential HTN
#Chronic HFpEF
#HLD
#Urinary retention
#Anxiety d/o
cont home meds
Watch for retention
DVT ppx Eliquis
DNR/DNI as agreed with patient and family
I have spent at least 59min reviewing chart, test results, communication with consultants and direct patient care
Anticipated Discharge: Within 24 hours
Subjective/Interval History
-
Date of Service: July 06, 2024
Objective Data
-
Labs:
Laboratory Results
07/06/24
05:10
WBC 13.2 H
Hgb 12.5
Hct 37.2
Plt Count 201
Vital Signs:
Vital Signs
Temp Pulse Resp BP Pulse Ox
98.0 F 124 16 131/98 92
07/06/24 07:30 07/06/24 08:48 07/06/24 07:30 07/06/24 08:48 07/06/24 07:30
I&O
07/05/24 07/06/24 07/07/24
06:59 06:59 06:59
Intake Total 420 / 420
Balance 420 / 420
Review of Systems
-
History Source: Patient
All other systems: Reviewed and negative
Musculoskeletal: Reports Other (lower back pain)
Physical Exam
-
General: No Apparent Distress
HEENT: Normocephalic
Respiratory: Clear to Auscultation
Cardiac: Regular Rhythm
Neuro: Awake, Alert, Oriented and AO x 3
Psych: Calm
[2024-07-06 15:15] VITALS: BP 95/59
[2024-07-06] MEDS: CRESTOR 5 MG PO (18:09)
[2024-07-06] MEDS: PROZAC 40 MG PO (18:10)
[2024-07-06 23:30] VITALS: BP 122/78
[2024-07-07 06:00] VITALS: BMI 29.8
[2024-07-07 07:22] VITALS: BP 131/92
[2024-07-07 07:38] LABS: Glucose - Point of Care 159 mg/dl (70-99)
[2024-07-07] MEDS: LIDOCAINE 4% PATCH 1 PATCH TOPICAL (08:25)
[2024-07-07] MEDS: TYLENOL 650 MG PO ×2 (08:25→14:00)
[2024-07-07] MEDS: FLOMAX 0.4 MG PO (08:26)
[2024-07-07] MEDS: STERILE WATER FOR INJECTION 10 ML IV (08:26)
[2024-07-07] MEDS: INDERAL 60 MG PO ×2 (08:26→20:53)
[2024-07-07] MEDS: ROCEPHIN 1000 MG IV (08:26)
[2024-07-07] MEDS: WELLBUTRIN XL (24 hour extended release) 150 MG PO (08:26)
[2024-07-07] MEDS: PROZAC 20 MG PO (08:26)
[2024-07-07] MEDS: OSCAL CAL 500 1500 MG PO (08:27)
[2024-07-07] MEDS: ELIQUIS 5 MG PO ×2 (08:27→20:53)
[2024-07-07] MEDS: KCL 20 MEQ PO (08:27)
[2024-07-07] MEDS: LASIX 20 MG PO (08:28)
[2024-07-07] MEDS: FLUSH (NSS) 2 FLUSH IV (08:36)
--- NOTE | 2024-07-07 09:10 | W.PN.HOSP.TC ---
Today's Communication/Plan
-
Increased pain meds.
Discharge to short-term rehab today.
Assessment / Plan
Assessment / Plan
84yo F with PMHX of Afib on Eliquis, HTN, HLD, anxiety, HFpEF, pulmonary HTN, frequent falls with vertebral compression Fx came after the fall from home, described like she tangled in her legs, no LOC reported. Similarly - no LOC on previous falls
earlier this month. Patient lives alone in independent living and concern that she might need higher level of care. Found UTI
A/P:
#Fall w/o LOC 2/2 chronic ambulatory deficiency
#Acute on chronic back pain
#L2 vertebral compression fracture
#Osteopenia
Head CT unremarkable
Lumbar spine XR with old vertebral Fx
CT: Diffuse osteopenia with a fracture through the L2 vertebral body with minimal loss of height, Multilevel degenerative changes of the lumbar spine most pronounced at L3-L4 with resultant mild canal stenosis, mild/moderate right-sided
neuroforaminal narrowing and mild left-sided neuroforaminal narrowing
TSH WNL, PT/OT rec SNF
Pain uncontrolled despite scheduled Tylenol/Lidocaine patch
Add tramadol 50 mg twice daily for moderate pain, oxycodone 5 mg 3 times daily for severe pain
Add prednisone 40 mg daily for 5 days for anti-inflammatory effects
Follow-up with PCP 1 week after leaving rehab
Continue calcium supplements for osteopenia
#Acute UTI
Urine culture growing 100,000 colonies of gram-negative rods/Enterobacter, sensitive to Rocephin
Currently receiving day 4 of Rocephin
Will discharge on cefdinir for 1 more day to complete a 5-day course
#AAA
4.0x4.6cm
outpatient VascSx for monitoring
#hyperglycemia with PMHx of preDM
HgbA1c 5.4%
#Afib, permanent
#Essential HTN
#Chronic HFpEF
#HLD
#Urinary retention
#Anxiety d/o
cont home meds
Watch for retention
DVT ppx Eliquis
DNR/DNI as agreed with patient and family
Updated daughter on phone 07/07
Total time spent to see the patient on the floor, examine the patient, review data and lab results, discuss treatment plan with patient, nursing staff around 50 minutes.
Physical Exam
General: No acute distress
HEENT: Normocephalic, Atraumatic, EOMI, MMM
Respiratory: Clear to Auscultation bilaterally
Cardiac: Normal S1/S2, Regular Rate and Rhythm
GI: Soft, Nontender, Nondistended, Normal Bowel Sounds
Extremities: No Clubbing, Cyanosis, or Edema
Neuro: Nonfocal/Grossly Intact
Psych: Calm, Cooperative
Derm: No Visible lesions
Anticipated Discharge: Today
Subjective/Interval History
-
Date of Service: July 07, 2024
Patient complains of back pain. Her pain is not relieved with Tylenol. Denies burning. No fever, no vomiting.
Objective Data
-
Labs:
Laboratory Results
07/07/24
06:48
WBC Pending
Hgb Pending
Hct Pending
Plt Count Pending
Vital Signs:
Vital Signs
Temp Pulse Resp BP Pulse Ox
98.0 F 98 16 131/92 94
07/07/24 07:22 07/07/24 07:22 07/07/24 07:22 07/07/24 07:22 07/07/24 07:22
I&O
07/06/24 07/07/24 07/08/24
06:59 06:59 06:59
Intake Total 420 / 420 720 / 720
Balance 420 / 420 720 / 720
[2024-07-07 09:18] LABS: % Basophils 0.4 % (0-2); % Eosinophils 2.1 % (0-6); % Immature Granulocytes 0.3 % (0-0.5); % Lymphocytes 26.1 % (20.5-51.1); % Monocytes 7.8 % (1.7-9.3); % Neutrophils 63.3 % (42.2-75.2); Absolute Basophils 0.1 10^3/uL (0-0.2); Absolute Eosinophils 0.2 10^3/uL (0-0.7); Absolute Monocytes 0.9 10^3/uL (0.1-0.6); Absolute Neutrophils 7.2 10^3/uL (1.4-6.5); Hematocrit 38.7 % (37.0-47.0); Hemoglobin 13.1 g/dL (12.0-16.0); Mean Corp Hgb Conc. 33.9 g/dL (33.0-37.0); Mean Corpuscular Hgb 30.7 pg (27.0-31.0); Mean Corpuscular Volume 90.6 fL (81.0-99.0); Mean Platelet Volume 10.6 fL (7.4-10.4); Nucleated Red Blood Cells % 0 %; Platelet Count 202 10^3/uL (130-400); Red Blood Cell Count 4.27 10^6/uL (4.20-5.40); Red Cell Dist. Width 13.6 % (11.5-14.5); White Blood Cell Count 11.4 10^3/uL (4.8-10.8)
--- NOTE | 2024-07-07 10:44 | CM ---
Addendum entered by Sneha Wood 07/07/24 15:31:
d/c cancelled due to uncontrolled pain.
Monet from [facility] updated.
Addendum entered by Sneha Wood 07/07/24 14:08:
transport time 6:30 pm if pain controlled.
Facility updated.
Addendum entered by Sneha Wood 07/07/24 13:26:
Negative Covid test and admission order attached in [facility].
Patient unable to participate in therapy so far today due to pain.
medications adjusted.
Monet from [facility] updated.
Original Note:
Patient seen bedside.
Bed available at [facility] after 3 pm.
Patient agreeable to [facility] skilled rehab.
Daughter Funmi updated and will be in to visit with patient.
Covid test to be completed.
Ambulance transport to be arranged. Forms on chart.
IMM completed.
Plan: [facility] rehab today.
[facility]
Report# [phone]
[2024-07-07] MEDS: ULTRAM 50 MG PO (11:27)
[2024-07-07 12:25] VITALS: BP 112/78; PULSE 82; O2SAT 95
--- NOTE | 2024-07-07 12:35 | PTCARENOTE ---
Pt unable to sit up on side of bed with PT due to unrelieved pain. MD and CM made aware.
[2024-07-07] MEDS: ROXICODONE 5 MG PO ×2 (12:38→17:46)
[2024-07-07 13:00] LABS: COVID-19 Antigen Negative (Negative)
[2024-07-07] MEDS: DELTASONE 40 MG PO (14:00)
--- NOTE | 2024-07-07 15:11 | PTCARENOTE ---
Pt attempted to sit up on side of bed, winced in pain and unable to get legs over side of bed. made aware.
[2024-07-07 15:19] VITALS: BP 117/82
[2024-07-07] MEDS: CRESTOR 5 MG PO (17:46)
[2024-07-07] MEDS: PROZAC 40 MG PO (17:46)
[2024-07-07] MEDS: DESENEX/MITRAZOL/ZEASORB 1 APPLIC TOPICAL (20:50)
[2024-07-07] MEDS: OMNICEF 300 MG PO (20:53)
[2024-07-07 23:00] VITALS: BP 115/70
[2024-07-08 06:00] VITALS: BMI 29.9
[2024-07-08 07:38] VITALS: BP 116/79
[2024-07-08] MEDS: OSCAL CAL 500 1500 MG PO (08:52)
[2024-07-08] MEDS: INDERAL 60 MG PO (08:52)
[2024-07-08] MEDS: LIDOCAINE 4% PATCH 1 PATCH TOPICAL (08:53)
[2024-07-08] MEDS: OMNICEF 300 MG PO (08:53)
[2024-07-08] MEDS: DELTASONE 40 MG PO (08:53)
[2024-07-08] MEDS: ELIQUIS 5 MG PO (08:53)
[2024-07-08] MEDS: FLOMAX 0.4 MG PO (08:53)
[2024-07-08] MEDS: KCL 20 MEQ PO (08:53)
[2024-07-08] MEDS: PROZAC 20 MG PO (08:56)
[2024-07-08] MEDS: WELLBUTRIN XL (24 hour extended release) 150 MG PO (08:56)
[2024-07-08] MEDS: LASIX 20 MG PO (08:56)
--- NOTE | 2024-07-08 09:03 | W.PN.HOSP.TC ---
Today's Communication/Plan
-
Discharge to short-term rehab today
Assessment / Plan
Assessment / Plan
84yo F with PMHX of Afib on Eliquis, HTN, HLD, anxiety, HFpEF, pulmonary HTN, frequent falls with vertebral compression Fx came after the fall from home, described like she tangled in her legs, no LOC reported. Similarly - no LOC on previous falls
earlier this month. Patient lives alone in independent living and concern that she might need higher level of care. Found UTI
A/P:
#Fall w/o LOC 2/2 chronic ambulatory deficiency
#Acute on chronic back pain
#L2 vertebral compression fracture
#Osteopenia
Head CT unremarkable
Lumbar spine XR with old vertebral Fx
CT: Diffuse osteopenia with a fracture through the L2 vertebral body with minimal loss of height, Multilevel degenerative changes of the lumbar spine most pronounced at L3-L4 with resultant mild canal stenosis, mild/moderate right-sided
neuroforaminal narrowing and mild left-sided neuroforaminal narrowing
TSH WNL, PT/OT rec SNF
Pain uncontrolled despite scheduled Tylenol/Lidocaine patch
Added tramadol 50 mg twice daily for moderate pain, oxycodone 5 mg 3 times daily for severe pain
Added prednisone 40 mg daily for 5 days for anti-inflammatory effects
Follow-up with PCP 1 week after leaving rehab
Continue calcium supplements for osteopenia
Medically stable for discharge to short-term rehab
#Acute UTI
Urine culture growing 100,000 colonies of gram-negative rods/Enterobacter, sensitive to Rocephin
Status post 4 days of IV Rocephin
Will discharge on cefdinir for 1 more day to complete a 5-day course
#AAA
4.0x4.6cm
outpatient VascSx for monitoring
#hyperglycemia with PMHx of preDM
HgbA1c 5.4%
#Afib, permanent
#Essential HTN
#Chronic HFpEF
#HLD
#Urinary retention
#Anxiety d/o
cont home meds
Watch for retention
DVT ppx Eliquis
DNR/DNI as agreed with patient and family
Updated daughter on phone 07/07
Physical Exam
General: No acute distress
HEENT: Normocephalic, Atraumatic, EOMI, MMM
Respiratory: Clear to Auscultation bilaterally
Cardiac: Normal S1/S2, Regular Rate and Rhythm
GI: Soft, Nontender, Nondistended, Normal Bowel Sounds
Extremities: No Clubbing, Cyanosis, or Edema
Neuro: Nonfocal/Grossly Intact
Psych: Calm, Cooperative
Derm: No Visible lesions
Anticipated Discharge: Today
Subjective/Interval History
-
Date of Service: July 08, 2024
Patient reports her pain is 2 at rest, 9 with movement. No fever, no vomiting. No chest pain, no shortness of breath.
Objective Data
-
Vital Signs:
Vital Signs
Temp Pulse Resp BP Pulse Ox
97.6 F 68 16 116/79 99
07/08/24 07:38 07/08/24 07:38 07/08/24 07:38 07/08/24 07:38 07/08/24 07:38
I&O
07/07/24 07/08/24 07/09/24
06:59 06:59 06:59
Intake Total 720 / 720
Balance 720 / 720
[2024-07-08] MEDS: ROXICODONE 5 MG PO (09:13)
[2024-07-08] MEDS: MIRALAX 17 GRAMS PO (10:44)
[2024-07-08 10:52] VITALS: BP 136/81; PULSE 80; O2SAT 97
--- NOTE | 2024-07-08 11:39 | W.DCSUMMARY ---
Discharge Summary
Discharge Data
Date of Admission: 07/04/24
Date of Discharge: 07/08/24
-
Pending Results: No
Hospital Course
Discharge diagnosis:
Recurrent mechanical falls
Acute on chronic ambulatory dysfunction
Acute on chronic back pain
Lumbar vertebral compression fracture
Osteopenia
Acute urinary tract infection
Abdominal aortic aneurysm
Permanent atrial fibrillation
Essential hypertension
Chronic heart failure with a preserved ejection fraction
Hyperlipidemia
History of urinary retention
Anxiety disorder
Lumbar spine CT:
Diffuse osteopenia with a fracture through the L2 vertebral body with minimal loss of height.
Multilevel degenerative changes of the lumbar spine most pronounced at L3-L4 with resultant mild canal stenosis, mild/moderate right-sided neuroforaminal narrowing and mild left-sided neuroforaminal narrowing.
There is increased size of the infrarenal abdominal aortic aneurysm which measures up to 4.6 cm, previously 4.2 cm.
Hospital course:
84-year-old female with a past medical history of permanent atrial fibrillation on Eliquis, hypertension, anxiety, vertebral compression fracture, and frequent mechanical falls was admitted for acute on chronic back pain secondary to an acute L2
vertebral compression fracture. Patient was seen in conjunction with PT/OT, who recommended short-term rehab.
She had severe acute on chronic back pain secondary to an acute lumbar vertebral compression fracture. She was treated with acetaminophen, lidocaine patch, oxycodone. She also was started on prednisone 40 mg daily for a burst course of 5 days.
Patient also had a urinary tract infection. She received 4 days of IV Rocephin, will be discharged on cefdinir to complete a 5-day course.
After several days, her pain improved. She is medically stable for discharge to short-term rehab. She needs to follow-up with her primary care doctor 1 week after she leaves rehab.
Disposition: Short-term rehab
Discharge planning: Required 39 minutes
Discharge Plan
-
Patient Disposition: Residential/SNF
Discharge Diagnosis/Procedures: Acute urinary tract infection, mechanical fall, acute on chronic back pain, lumbar vertebral compression fracture, ambulatory dysfunction, permanent atrial fibrillation, abdominal aortic aneurysm
Condition: Good
Diet: Low Sodium
Activity: As tolerated
Driving Restrictions: As prior to admission
Blood Work: CMP on 07/08/24
Activity Restrictions/Additional Instructions:
Continue your antibiotic cefdinir for 1 more day.
Take prednisone 40 mg daily for 4 more days.
Follow-up with your primary care doctor 1 week after you leave rehab.
You can follow-up with vascular surgery for monitoring of your abdominal aortic aneurysm.
Referrals:
Wyatt Amor III, MD [Active] - in one to two months (AAA 4.0x4.6cm)
Nikko Kirk MD [Family Provider] - in one week
Prescriptions:
New
acetaminophen [Acetaminophen Pain Relief] 500 mg tablet
1,000 mg PO TID Qty: 90 0RF
lidocaine 4 % Adhesive Patch,Medicated
1 patch topical DAILY Qty: 0 0RF
polyethylene glycol 3350 17 gram Powder In Packet
17 g PO DAILY Qty: 0 0RF
oxycodone 5 mg Tablet
5 mg PO TIDPRN PRN (Reason: severe pain) Qty: 4 0RF
tramadol 50 mg Tablet
50 mg PO BIDPRN PRN (Reason: moderate pain) Qty: 0 0RF
prednisone 20 mg tablet
40 mg PO DAILY 4 Days Qty: 8 0RF
cefdinir 300 mg capsule
300 mg PO BID 1 Days Qty: 2 0RF
Continued
potassium chloride [Klor-Con M20] 20 MEQ tablet,ER particles/crystals
20 meq PO DAILY
rosuvastatin 5 MG tablet
5 mg PO QPM Qty: 90 3RF
fluoxetine 40 mg capsule
40 mg PO QPM
bupropion HCl 150 mg tablet extended release 24 hr
150 mg PO DAILY
furosemide 20 MG tablet
20 mg PO DAILY
propranolol 40 mg Tablet
60 mg PO BID
fluoxetine 20 mg Capsule
20 mg PO DAILY Qty: 30 0RF
calcium carbonate 500 mg calcium (1,250 mg) Tablet
1,500 mg PO DAILY
tamsulosin [Flomax] 0.4 mg Capsule
0.4 mg PO DAILY
Eliquis 5 mg Tablet
5 mg PO BID
Discharge Orders:
Discharge Patient (As Directed); Ordered 07/08/24
Ordered By: Buster Lyle
Discharge Date and Time
Discharge Date/Time: 07/08/24 15:20
Print Language: K[place]HILI
--- NOTE | 2024-07-08 12:09 | CM ---
entered order for discharge.
Mon[facility] at [facility] can accept her today.
Daughter Funmi updated and will be in to visit with patient.
Covid test negative 07/07/24
Ambulance transport to be arranged. Forms on chart.
[facility]'s home
Report# [phone]

PLAN To [facility] via ambulance
[2024-07-08] MEDS: ULTRAM 50 MG PO (13:25)
== END 2024-07-08 15:20 | DRG 543 ==
LOC: 3 WEST ACU 21:00
PROVIDERS: Physician Assistant; ADMITTING PHYSICIAN Internal Medicine; ATTENDING PHYSICIAN Family Medicine; EMERGENCY PHYSICIAN Emergency Medicine; FAMILY PHYSICIAN Internal Medicine Geriatric Medicine
DX: M48.56XA Collapsed vertebra, not elsewhere classified, lumbar region, initial encounter for fracture (principal); I48.21 Permanent atrial fibrillation; I50.32 Chronic diastolic (congestive) heart failure; N39.0 Urinary tract infection, site not specified; M54.50 Low back pain, unspecified; F41.9 Anxiety disorder, unspecified; F32.A Depression, unspecified; I11.0 Hypertensive heart disease with heart failure; M85.88 Other specified disorders of bone density and structure, other site; R53.1 Weakness; R53.83 Other fatigue; D72.829 Elevated white blood cell count, unspecified; I27.20 Pulmonary hypertension, unspecified; R29.6 Repeated falls; E78.5 Hyperlipidemia, unspecified; R73.9 Hyperglycemia, unspecified; I71.40 Abdominal aortic aneurysm, without rupture, unspecified; I71.43 Infrarenal abdominal aortic aneurysm, without rupture; G89.29 Other chronic pain; M47.816 Spondylosis without myelopathy or radiculopathy, lumbar region; R73.03 Prediabetes; W18.39XA Other fall on same level, initial encounter; Y93.89 Activity, other specified; Y92.002 Bathroom of unspecified non-institutional (private) residence as the place of occurrence of the external cause; Z66 Do not resuscitate; Z60.2 Problems related to living alone; Z79.01 Long term (current) use of anticoagulants; Z87.891 Personal history of nicotine dependence; Z90.49 Acquired absence of other specified parts of digestive tract; Z85.3 Personal history of malignant neoplasm of breast; Z87.311 Personal history of (healed) other pathological fracture; Z87.81 Personal history of (healed) traumatic fracture; Z88.8 Allergy status to other drugs, medicaments and biological substances; Z11.52 Encounter for screening for COVID-19
CPT/HCPCS: 70450; 71046; 72100; 72131; 80048; 80053; 81003; 81015; 82962; 83036; 83735; 84443; 85025; 85027; 85610; 85730; 87077; 87086; 87186; 87502; 87811; 93005; 97110; 97167; 97530; 99285

== ENCOUNTER → 2024-10-23 17:18 | Outpatient (REF) | payer MEDICARE, SELFPAY | LOC: RAD 17:18 | PROVIDERS: ATTENDING PHYSICIAN Nurse Practitioner Primary Care | DX: R29.6 Repeated falls (principal); M79.18 Myalgia, other site | CPT/HCPCS: 72190; 72220 ==

== ENCOUNTER → 2024-10-24 08:56 | Outpatient (REF) | payer MEDICARE, SELFPAY ==
[2024-10-24 09:58] LABS: % Basophils 0.7 % (0-2); % Immature Granulocytes 0.3 % (0-0.5); % Lymphocytes 23.6 % (20.5-51.1); % Monocytes 9.8 % (1.7-9.3); % Neutrophils 64.6 % (42.2-75.2); Absolute Basophils 0.1 10^3/uL (0-0.2); Absolute Eosinophils 0.1 10^3/uL (0-0.7); Absolute Lymphocytes 2.4 10^3/uL (1.2-3.4); Absolute Neutrophils 6.6 10^3/uL (1.4-6.5); Hemoglobin 11.4 g/dL (12.0-16.0); Mean Corp Hgb Conc. 32.6 g/dL (33.0-37.0); Mean Corpuscular Hgb 31.6 pg (27.0-31.0); Mean Platelet Volume 10.3 fL (7.4-10.4); Nucleated Red Blood Cells % 0 %; Platelet Count 234 10^3/uL (130-400); Red Blood Cell Count 3.61 10^6/uL (4.20-5.40); Red Cell Dist. Width 14.2 % (11.5-14.5); White Blood Cell Count 10.3 10^3/uL (4.8-10.8)
[2024-10-24 10:33] LABS: Glycohemoglobin (HgbA1c) 5.1 % (4.0-5.6)
[2024-10-24 12:16] LABS: Vitamin D, 25-OH*** 68.1 ng/mL (30-80)
[2024-10-24 12:30] LABS: TSH Reflex To Free T4 0.92 uIU/ml (0.47-4.68)
[2024-10-24 12:36] LABS: ALT (SGPT) 13 U/L (0-35); AST (SGOT) 19 U/L (14-36); Alkaline Phosphatase 77 U/L (38-126); Blood Urea Nitrogen 13 mg/dl (7-17); Calcium 9.3 mg/dl (8.4-10.2); Carbon Dioxide 26 mmol/L (22-30); Chloride 107 mmol/L (98-107); Glucose 113 mg/dl (70-99); HDL Cholesterol 44 mg/dl; Iron 83 ug/dl (37-170); LDL Cholesterol, Calculated 36 mg/dl; Potassium 4.6 mmol/L (3.5-5.1); Sodium 143 mmol/L (135-145); Total Bilirubin 1.1 mg/dl (0.2-1.3); Total Cholesterol 106 mg/dl (50-199); Total Protein 6.2 g/dl (6.3-8.2); Triglyceride 130 mg/dl (10-149); Very Low Density Lipoprotein 26 mg/dl (0-30); eGFR > 60.00
[2024-10-24 12:46] LABS: Percent Saturation 25 % (20-50); Total Iron Binding Capacity 331 ug/dl (265-497)
[2024-10-24 13:06] LABS: Folate 5.1 ng/ml (2.76-20); Vitamin B12 634 pg/ml (239-931)
== END ==
LOC: REG 08:56
PROVIDERS: ATTENDING PHYSICIAN Nurse Practitioner Primary Care
DX: I48.21 Permanent atrial fibrillation (principal); E78.2 Mixed hyperlipidemia; R73.03 Prediabetes; M80.00XD Age-related osteoporosis with current pathological fracture, unspecified site, subsequent encounter for fracture with routine healing; N18.31 Chronic kidney disease, stage 3a; Z79.899 Other long term (current) drug therapy
CPT/HCPCS: 36415; 80053; 80061; 82306; 82607; 82728; 82746; 83036; 83540; 83550; 84443; 85025

== ENCOUNTER → 2024-11-05 11:12 | Outpatient (REF) | payer MEDICARE, SELFPAY | LOC: RAD 11:12 | PROVIDERS: ATTENDING PHYSICIAN Nurse Practitioner Primary Care; FAMILY PHYSICIAN Family Medicine | DX: I71.43 Infrarenal abdominal aortic aneurysm, without rupture (principal) | CPT/HCPCS: 76770 ==

== ENCOUNTER → 2024-12-13 09:30 | Outpatient (REF) | payer MEDICARE, SELFPAY ==
[2024-12-13 10:29] LABS: % Basophils 0.6 % (0-2); % Eosinophils 1.7 % (0-6); % Immature Granulocytes 0.4 % (0-0.5); % Lymphocytes 26.2 % (20.5-51.1); % Monocytes 7.8 % (1.7-9.3); % Neutrophils 63.3 % (42.2-75.2); Absolute Basophils 0.1 10^3/uL (0-0.2); Absolute Eosinophils 0.1 10^3/uL (0-0.7); Absolute Lymphocytes 2.2 10^3/uL (1.2-3.4); Absolute Monocytes 0.7 10^3/uL (0.1-0.6); Absolute Neutrophils 5.4 10^3/uL (1.4-6.5); Hematocrit 38.8 % (37.0-47.0); Hemoglobin 13.3 g/dL (12.0-16.0); Mean Corp Hgb Conc. 34.3 g/dL (33.0-37.0); Mean Corpuscular Hgb 32.4 pg (27.0-31.0); Mean Corpuscular Volume 94.4 fL (81.0-99.0); Mean Platelet Volume 9.5 fL (7.4-10.4); Nucleated Red Blood Cells % 0 %; Platelet Count 240 10^3/uL (130-400); Red Blood Cell Count 4.11 10^6/uL (4.20-5.40); Red Cell Dist. Width 11.8 % (11.5-14.5); White Blood Cell Count 8.5 10^3/uL (4.8-10.8)
[2024-12-13 10:50] LABS: Calcium 9.7 mg/dl (8.4-10.2)
[2024-12-13 10:55] LABS: C-Reactive Protein < 5.00 mg/L (0.0-10.00)
[2024-12-13 11:26] LABS: Cortisol, Random 16.3 ug/dl
[2024-12-14 23:46] LABS: IgA 154 mg/dl (70-400)
[2024-12-15 16:52] LABS: Endomysial IgA Antibody Titer <1:10 (<1:10)
[2024-12-15 18:47] LABS: CTx 477 pg/mL
[2024-12-15 22:47] LABS: Gliadin Peptide (DGP) Ab, IgA <0.72 FLU (0.00-4.99); Gliadin Peptide (DGP) Ab, IgG <0.56 FLU (0.00-4.99)
[2024-12-16 09:22] LABS: Intact PTH 47.3 pg/ml (13.6-85.8)
== END ==
LOC: REG 09:30
PROVIDERS: ATTENDING PHYSICIAN Internal Medicine Rheumatology; FAMILY PHYSICIAN Nurse Practitioner Primary Care
DX: E21.3 Hyperparathyroidism, unspecified (principal); K90.0 Celiac disease; M81.0 Age-related osteoporosis without current pathological fracture; Z13.29 Encounter for screening for other suspected endocrine disorder; Z79.899 Other long term (current) drug therapy; D64.9 Anemia, unspecified
CPT/HCPCS: 36415; 82523; 82533; 82784; 83516; 83521; 83970; 84155; 84165; 85025; 86140; 86231; 86258; 86334

== ENCOUNTER → 2024-12-15 12:10 | Outpatient (REF) | payer MEDICARE, SELFPAY ==
[2024-12-15 13:38] LABS: 24 Hour Urine Total Volume 800 ml
[2024-12-15 14:00] LABS: 24 Hour Urine Calcium 141.6 mg/day; Urine Calcium 17.7 mg/dl
== END ==
LOC: REG 12:10
PROVIDERS: ATTENDING PHYSICIAN Internal Medicine Rheumatology; FAMILY PHYSICIAN Internal Medicine Geriatric Medicine
DX: M81.0 Age-related osteoporosis without current pathological fracture (principal); R82.994 Hypercalciuria
CPT/HCPCS: 81050; 82340